=== PATIENT | female | born 1980 | race Caucasian/White ===

== ENCOUNTER → 2019-01-26 | Emergency (ER) | payer OTHER ==
[~2019-01-26] VITALS: Ht 160 cm; Wt 49.4 kg
== END | disposition home or self-care (01) ==
LOC: ER 21:25
DX: S61.322A Laceration with foreign body of right middle finger with damage to nail, initial encounter (principal); S62.632A Displaced fracture of distal phalanx of right middle finger, initial encounter for closed fracture; W22.8XXA Striking against or struck by other objects, initial encounter; Y93.89 Activity, other specified; Y92.69 Other specified industrial and construction area as the place of occurrence of the external cause; Y99.8 Other external cause status